=== PATIENT | male | born 1975 | race Caucasian/White ===

== ENCOUNTER 2022-09-23 07:13 | Day surgery (SDC) | payer MEDICAID ==
[~2022-09-23] VITALS: Ht 170.2 cm; Wt 93.0 kg
[~2022-09-23 07:13] MED LIST: CEFAZOLIN SOD 2 GM in D5W 50 ML IV ONE
[2022-09-23] MEDS ORDERED: ACETAMINOPHEN I.V. 1000 MG 100 ML IV ONE (12:16)
[2022-09-23] MEDS ORDERED: DESFLURANE 15 MIN GAS INH ONE (12:30)
[2022-09-23] MEDS ORDERED: KETOROLAC TROMETHAMINE 30 MG VIAL IVP ONE (12:30)
[2022-09-23] MEDS ORDERED: LIDOCAINE MPF 1% 50 MG/5 ML AMP INJ ONE (12:30)
[2022-09-23] MEDS ORDERED: fentaNYL CITRATE 250 MCG/5 ML AMP IV ONE (12:30)
[2022-09-23] MEDS ORDERED: ROCURONIUM BROMIDE 10 MG/ML (ZEMURON) IV ONE (12:30)
[2022-09-23] MEDS ORDERED: LR 1,000 ML IV.SOLN IV ONE (12:30)
[2022-09-23] MEDS ORDERED: PROPOFOL 200MG/ 20ML VIAL (DIPRIVAN) IV ONE (12:30)
[2022-09-23] MEDS ORDERED: BUPIVACAINE /PF 0.25% 30 ML VIAL INJ ONE (12:30)
[2022-09-23] MEDS ORDERED: NS IRRIG SOLN 5000 ML IR ONE (12:30)
[2022-09-23] MEDS ORDERED: DEXAMETHASONE SOD PHOSPHATE 4 MG/ML VIAL IVP ONE (12:30)
[2022-09-23] MEDS ORDERED: SUGAMMADEX SODIUM 200 MG/2 ML VIAL IV ONE (12:30)
[2022-09-23] MEDS ORDERED: MIDAZOLAM HCL 5 MG/5 ML VIAL IVP ONE (12:30)
[2022-09-23] MEDS ORDERED: LIDOCAINE 1% 10 MG/ML, 20 ML MDV INJ ONE (12:30)
[2022-09-23] MEDS ORDERED: ONDANSETRON HCL 4 MG/2 ML VIAL IVP ONE (12:30)
[2022-09-23] MEDS ORDERED: LR 1,000 ML IV SCH (13:30)
[2022-09-23] MEDS ORDERED: MIDAZOLAM HCL 2 MG/2 ML VIAL (VERSED) IVP PRN (13:30)
[2022-09-23] MEDS ORDERED: METOCLOPRAMIDE HCL 10 MG/2 ML VIAL IVP PRN (13:30)
[2022-09-23] MEDS ORDERED: hydrALAZINE HCL 20 MG/ML VIAL IVP PRN (13:30)
[2022-09-23] MEDS ORDERED: HYDROmorphone 1 MG/ML INJ. CARTRIDGE IVP PRN ×2 (13:30)
[2022-09-23] MEDS ORDERED: MEPERIDINE HCL/PF 25 MG/ML DISP.SYRIN IVP PRN (13:30)
[2022-09-23] MEDS ORDERED: LABETALOL 100 MG/ 20ML VIAL IVP PRN (13:30)
[2022-09-23 16:26] VITALS: BP_SYST 111
== END 2022-09-23 16:00 | disposition home or self-care (01) ==
LOC: SDS 07:13 → SMU 09:29 → SDS 16:00
PROVIDERS: ATTEND Surgery
DX: L05.91 Pilonidal cyst without abscess (principal); E78.5 Hyperlipidemia, unspecified; Z20.822 Contact with and (suspected) exposure to COVID-19
CPT/HCPCS: 11770; 36415; 88304; 87426; J3490 ×2; J0690; J1100; J1885; J2001 ×2; J2250; J2405; J2704; J3010; J7060; J7120; J0131; 88305